=== PATIENT | male | born 1975 | race Hispanic/Latino ===

== ENCOUNTER 2022-09-30 11:09 | Inpatient (IN) | payer SELFPAY ==
[2022-09-30 12:34] LABS: #Basophils 0.1 10x3/uL (0.0-0.2); #Eosinphils 0.1 10x3/uL (0.0-0.5); #Monocytes 0.9 10x3/uL (0.0-1.1); #Neutrophils 6.7 10x3/uL (1.5-8.4); %Basophils 0.6 % (0.0-2.0); %Eosinophils 1.6 % (0.0-6.0); %Lymphocytes 8.9 % (18.0-47.0); %Monocytes 10.2 % (0.0-10.0); %Neutrophils 78.5 % (40.0-75.0); Hemoglobin 13.5 g/dL (13.5-17.5); Mean Corpuscular HGB CONC 33.7 g/dL (32.0-36.0); Mean Corpuscular Hemoglobin 27.2 pg (27.0-33.0); Mean Corpuscular Volume 80.8 fl (81.2-95.1); Mean Platelet Volume 10.2 fl (7.4-10.4); Platelet Count 381 10x3/uL (150-450); RBC Distribution Width 13.5 % (11.5-14.5); Red Blood Cell (RBC) Count 4.96 10x6/uL (4.32-5.72); White Blood Cell (WBC) Count 8.5 10x3/uL (3.5-10.5)
[2022-09-30 12:35] LABS: ALT (SGPT) 204 U/L (8-55); AST (SGOT) 87 U/L (5-34); Alkaline Phosphatase 358 U/L (40-110); Anion Gap 14 mmol/L (10-20); BUN (Urea Nitrogen) 13 mg/dL (8.9-20.6); Bilirubin, Total 9.6 mg/dL (0.2-1.2); Calc. Creatinine Clearance 0 mL/min (70-130); Calcium 9.4 mg/dL (7.8-10.44); Carbon Dioxide 26 mmol/L (22-29); Chloride 99 mmol/L (98-107); Estimated GFR 112; Globulin 3.5 g/dL (2.4-3.5); Glucose 112 mg/dL (70-105); Lipase 39 U/L (8-78); Potassium 4.1 mmol/L (3.5-5.1); Protein, Total 7.5 g/dL (6.0-8.3); Sodium 135 mmol/L (136-145)
[2022-09-30] MEDS ORDERED: Morphine 2 MG/ML VIAL ONE (16:58)
[2022-09-30 17:21] LABS: SARS-CoV-2 NAA Rapid Test Not Detected (NotDetected)
[2022-09-30 18:38] VITALS: BMI 26.6
[2022-09-30] MEDS ORDERED: Ondansetron PF 4 MG/2 ML Vial IVP PRN (19:48)
[2022-09-30] MEDS ORDERED: Acetaminophen 325 MG TAB PO PRN (19:49)
[2022-09-30] MEDS ORDERED: FLU VACC QS2022-23(6MOS UP)/PF 60 MCG/0.5 ML SYRINGE IM ONE (20:45)
[2022-09-30] MEDS: Sodium Chloride 0.9% 1,000 ML IV SCH (21:07)
[2022-09-30] MEDS: Ketorolac Tromethamine 30 MG/ML VIAL IVP PRN (21:08)
[2022-10-01] MEDS: Sodium Chloride 0.9% 1,000 ML IV SCH ×3 (02:37→18:16)
[2022-10-01] MEDS: Ketorolac Tromethamine 30 MG/ML VIAL IVP PRN (02:58)
[2022-10-01] MEDS ORDERED: EPINEPHrine 1 MG/ML AMP ONE (10:22)
[2022-10-01] MEDS ORDERED: Ethanolamine Oleate 5% 2 ml Ampule ONE (10:23)
[2022-10-01] MEDS ORDERED: Iopamidol 15 ML ONE (10:23)
[2022-10-01] MEDS ORDERED: Bupivacaine PF 0.5% 30 ML VIAL ONE (10:23)
[2022-10-01] MEDS ORDERED: Indomethacin 50 MG SUPP ONE (10:24)
[2022-10-01] MEDS ORDERED: traMADol HCl 50 MG TAB PO PRN (13:06)
[2022-10-01] MEDS ORDERED: Fentanyl 250 MCG/5 ML VIAL ONE (13:08)
[2022-10-01] MEDS ORDERED: Ondansetron PF 4 MG/2 ML Vial ONE (13:08)
[2022-10-01] MEDS ORDERED: PROPOFOL 20 ML ONE (13:08)
[2022-10-01] MEDS ORDERED: Dexamethasone 4 mg/ml Vial ONE (13:08)
[2022-10-01] MEDS ORDERED: Rocuronium Bromide 10 MG/ML (10ML VIAL) ONE (13:08)
[2022-10-01] MEDS ORDERED: Lidocaine 1% PF 5 ML VIAL ONE (13:08)
[2022-10-01] MEDS ORDERED: Ketorolac Tromethamine 30 MG/ML VIAL IVP SCH (13:30)
[2022-10-01] MEDS ORDERED: Acetaminophen 500 MG TAB PO SCH (13:30)
[2022-10-01] MEDS ORDERED: Glycopyrrolate 0.2 MG/ML 5 ML SYRINGE ONE (16:22)
[2022-10-01] MEDS: Ketorolac Tromethamine 30 MG/ML VIAL IVP SCH (18:15)
[2022-10-01] MEDS ORDERED: Ibuprofen 600 MG TAB PO PRN (19:30)
[2022-10-02] MEDS: Ketorolac Tromethamine 30 MG/ML VIAL IVP SCH ×3 (00:02→13:45)
[2022-10-02] MEDS: Sodium Chloride 0.9% 1,000 ML IV SCH ×3 (02:16→21:20)
[2022-10-02] MEDS: Morphine 2 MG/ML VIAL SLOW IVP PRN ×3 (04:22→19:46)
[2022-10-02 05:57] LABS: #Eosinphils 0.1 10x3/uL (0.0-0.5); #Monocytes 0.5 10x3/uL (0.0-1.1); #Neutrophils 9.6 10x3/uL (1.5-8.4); %Basophils 0.2 % (0.0-2.0); %Eosinophils 0.8 % (0.0-6.0); %Lymphocytes 6.9 % (18.0-47.0); %Monocytes 4.8 % (0.0-10.0); %Neutrophils 86.8 % (40.0-75.0); Hemoglobin 11.3 g/dL (13.5-17.5); Mean Corpuscular HGB CONC 33.5 g/dL (32.0-36.0); Mean Corpuscular Hemoglobin 26.9 pg (27.0-33.0); Mean Corpuscular Volume 80.2 fl (81.2-95.1); Mean Platelet Volume 9.7 fl (7.4-10.4); Platelet Count 354 10x3/uL (150-450); RBC Distribution Width 13.6 % (11.5-14.5); White Blood Cell (WBC) Count 11.1 10x3/uL (3.5-10.5)
[2022-10-02 06:20] LABS: ALT (SGPT) 171 U/L (8-55); AST (SGOT) 126 U/L (5-34); Albumin 2.9 g/dL (3.5-5.0); Alkaline Phosphatase 301 U/L (40-110); Anion Gap 12 mmol/L (10-20); BUN (Urea Nitrogen) 13 mg/dL (8.9-20.6); Bilirubin, Total 5.1 mg/dL (0.2-1.2); Calc. Creatinine Clearance 127 mL/min (70-130); Calcium 8.4 mg/dL (7.8-10.44); Carbon Dioxide 22 mmol/L (22-29); Chloride 105 mmol/L (98-107); Estimated GFR 114; Glucose 111 mg/dL (70-105); Protein, Total 5.9 g/dL (6.0-8.3); Sodium 135 mmol/L (136-145)
[2022-10-02] MEDS ORDERED: Ibuprofen 600 MG TAB PO PRN (18:00)
[2022-10-02] MEDS: Acetaminophen 500 MG TAB PO PRN (19:45)
[2022-10-03] MEDS: Acetaminophen 500 MG TAB PO PRN (05:02)
[2022-10-03 06:29] LABS: ALT (SGPT) 128 U/L (8-55); AST (SGOT) 56 U/L (5-34); Albumin 3.1 g/dL (3.5-5.0); Alkaline Phosphatase 256 U/L (40-110); Bilirubin, Total 3.1 mg/dL (0.2-1.2); Protein, Total 6.2 g/dL (6.0-8.3)
[2022-10-03 08:35] VITALS: BP 108/70; TEMP 98.3
== END 2022-10-03 10:10 | disposition home or self-care (01) | DRG 418 ==
LOC: CSHERS 11:09 → CSHTELE 17:54
PROVIDERS: ADMIT Specialist; ATTEND Specialist
PROC: 0FT44ZZ Resection of Gallbladder, Percutaneous Endoscopic Approach (ICD-10-PCS; principal; 2022-10-01)
PROC: 0FC98ZZ Extirpation of Matter from Common Bile Duct, Via Natural or Artificial Opening Endoscopic (ICD-10-PCS; 2022-10-01)
DX: K80.66 Calculus of gallbladder and bile duct with acute and chronic cholecystitis without obstruction (principal); E87.1 Hypo-osmolality and hyponatremia; Z20.822 Contact with and (suspected) exposure to COVID-19
CPT/HCPCS: 36415; 74330; 76705; 80053; 80076; 83690; 84484; 85025; 88304; 93005; 96374; A4649; C1725; C1889; J0171; J1100; J1430; J1611; J1650; J1885; J1956; J2272; J2405; J2704; J3010; J7050; Q9967; S0020; U0002